=== PATIENT | male | born 2005 | race Caucasian/White ===

== ENCOUNTER 2023-09-19 10:44 | Emergency (ER) | payer OTHER ==
[~2023-09-19] VITALS: Ht 190.5 cm; Wt 113.5 kg
[2023-09-19] MEDS ORDERED: methocarbamoL 500 MG TAB PO ONE (12:35)
[2023-09-19] MEDS ORDERED: KETOROLAC 30 MG/ML 1ML VIAL IV ONE (12:35)
[2023-09-19 13:53] LABS: BASO % 0.6 % (0.0-1.0); EOS # 0.1 10^3/uL (0.0-0.5); EOS % 1.6 % (0.0-3.0); HEMATOCRIT 39.9 % (42.0-52.0); HEMOGLOBIN 13.8 g/dl (13.5-17.5); LYMPH # 2.1 10^3/uL (1.5-5.0); LYMPH % 33.2 % (24.0-44.0); MEAN CORPUSCULAR HEMOGLOBIN 31.4 pg (27.0-33.0); MEAN CORPUSCULAR HGB CONC 34.6 g/dl (32.0-36.5); MEAN CORPUSCULAR VOLUME 90.7 fl (80.0-96.0); MONO # 0.4 10^3/uL (0.0-0.8); MONO % 6.3 % (2.0-8.0); NEUTROPHILS # 3.7 10^3/uL (1.5-8.5); NEUTROPHILS % 58.1 % (36.0-66.0); PLATELET COUNT, AUTOMATED 214 10^3/uL (150-450); WHITE BLOOD COUNT 6.3 10^3/uL (4.0-10.0)
[2023-09-19] MEDS ORDERED: NS 1,000 ML IV ONE (14:15)
[2023-09-19 14:25] LABS: BLOOD UREA NITROGEN 10 MG/DL (9-23); CALCIUM LEVEL 9.1 MG/DL (8.5-10.1); CARBON DIOXIDE LEVEL 26 MMOL/L (20-31); CHLORIDE LEVEL 105 MMOL/L (98-107); CREATININE FOR GFR 0.95 MG/DL (0.70-1.30); GLUCOSE, FASTING 97 MG/DL (60-100); SODIUM LEVEL 140 MMOL/L (136-145)
[2023-09-19 14:27] LABS: THYROID STIMULATING HORMONE 1.368 uIU/ML (0.48-4.17)
[2023-09-19 14:59] VITALS: O2SAT 99
[2023-09-19 15:06] VITALS: BP 123/56
[2023-09-19 15:19] VITALS: TEMP 98
== END 2023-09-19 15:20 | disposition home or self-care (01) ==
LOC: M ED 10:44
DX: R55 Syncope and collapse (principal)
CPT/HCPCS: 70450; 72125; 80047; 80048; 84443; 85025; 93005; 93041; 94760; 96361; 96374; 99285; J1885

== ENCOUNTER 2023-10-05 00:06 | Emergency (ER) | payer OTHER ==
[~2023-10-05] VITALS: Ht 190.5 cm; Wt 109.1 kg
[2023-10-05 03:33] VITALS: BP 133/70; TEMP 98.5; O2SAT 99
== END 2023-10-05 05:44 | disposition home or self-care (01) ==
LOC: M ED 00:06
DX: S09.90XA Unspecified injury of head, initial encounter (principal); M79.662 Pain in left lower leg; V49.40XA Driver injured in collision with unspecified motor vehicles in traffic accident, initial encounter; Y92.410 Unspecified street and highway as the place of occurrence of the external cause; Y93.9 Activity, unspecified; Y99.9 Unspecified external cause status